=== PATIENT | female | born 1970 | race Caucasian/White ===

== ENCOUNTER 2019-12-28 09:13 | Emergency (ER) | payer BC ==
[~2019-12-28] VITALS: Ht 154.9 cm; Wt 78.9 kg
--- NOTE | 2019-12-28 09:13 | NUR ---
Patient to bed 7 and gown. Side rails up.
[2019-12-28 09:31] VITALS: BP_SYST 110
[2019-12-28] MEDS ORDERED: SOM350 PO (09:31)
[2019-12-28] MEDS ORDERED: TYLENOL #3 PO (09:31)
--- NOTE | 2019-12-28 09:32 | NUR ---
Dr. Valentino at bedside for examination.
--- NOTE | 2019-12-28 09:35 | NUR ---
Patient came to ER presenting of diarrhea since 10 PM last night. Patient does not complain of vomitting but has been "feeling nauseous." Patient reported to have undergone hysterectomy 12/22/2019 and has been taking medication for pain. Patient reports soreness in right abdominal region but does not report pain at this time. Patient ambulatory with family at bedside.
--- NOTE | 2019-12-28 09:38 | NUR ---
PATIENT PRESENTS TO THE ER WITH HX OF DIARRHEA FOR 11 HOURS WITH ABDOMINAL CRAMPING, NAUSEA, EPIGASTRIC BURNING, AND LOWER BACK PAIN; NO TRAUMA, NO OTHER REMARKABLE S/S; PATIENT STATES HYSTERECTOMY PROCEDURE FIVE DAYS AGO; PATIENT TO ER #[id number] AT [id number]
[2019-12-28 10:16] LABS: BASOPHILS % (AUTO) 0.2 % (0.0-2.0); EOSINOPHILS # (AUTO) 0.2 K/uL (0.0-0.4); EOSINOPHILS % (AUTO) 2.5 % (0.0-4.0); HEMATOCRIT 42.3 % (36-48); HEMOGLOBIN 14.3 g/dL (12.0-16.0); LYMPHOCYTES # (AUTO) 0.8 K/uL (1.0-5.5); LYMPHOCYTES % (AUTO) 8.4 % (20.5-51.5); MEAN CORPUSCULAR HEMOGLOBIN 31 pg (27-31); MEAN CORPUSCULAR HGB CONC 34 % (32-36); MEAN CORPUSCULAR VOLUME 91 fL (79.0-98.0); MONOCYTES # (AUTO) 0.5 K/uL (0.0-1.0); MONOCYTES % (AUTO) 5.4 % (1.7-9.3); NEUTROPHILS # (AUTO) 7.6 K/uL (1.8-7.7); NEUTROPHILS % (AUTO) 83.5 % (40.0-70.0); PLATELET COUNT (AUTO) 238 K/uL (130-430); RED BLOOD CELL COUNT(AUTO) 4.67 MIL/uL (4.2-6.2); RED CELL DISTRIBUTION WIDTH 13.4 % (9.0-15.0); WHITE BLOOD COUNT (AUTO) 9.1 K/uL (4.8-10.8)
[2019-12-28 10:26] LABS: CALCIUM 9.2 mg/dL (8.4-11.0); CREATININE 0.64 mg/dL (0.55-1.30); POTASSIUM 3.5 mmol/L (3.5-5.1)
[2019-12-28 10:29] LABS: PROTHROMBIN TIME 9.9 SECS (9.5-12.5)
[2019-12-28 10:30] LABS: ALBUMIN 3.7 g/dL (3.4-4.8); TOTAL BILIRUBIN 0.6 mg/dL (0.0-1.0)
--- NOTE | 2019-12-28 11:00 | NUR ---
Patient in no signs of distress at this time. No complaints of pain.
[2019-12-28 11:52] LABS: BILIRUBIN,URINE NEGATIVE (NEGATIVE); CLARITY/URINE SL CLOUDY (CLEAR); COLOR,URINE YELLOW (YELLOW); GLUCOSE,URINE NEGATIVE (NEGATIVE); KETONES,URINE NEGATIVE (NEGATIVE); LEUKOCYTE ESTERASE ,URINE NEGATIVE (NEGATIVE); NITRITE, URINE NEGATIVE (NEGATIVE); PH,URINE 6.5 (5.0-8.0); PROTEIN URINE NEGATIVE (NEGATIVE); UROBILINOGEN,URINE 0.2 (0.2-1.0)
[2019-12-28 11:55] LABS: BLOOD, URINE TRACE (NEGATIVE)
[2019-12-28 12:28] LABS: BACTERIA,URINE FEW /HPF (None Seen); WBC,URINE 0-3 /HPF (0-3)
[2019-12-28 12:42] VITALS: BP_SYST 110
--- NOTE | 2019-12-28 12:43 | NUR ---
Patient given written and verbal discharge instructions and verbalizes understanding. ER MD discussed with patient the results and treatment provided. Patient in stable condition. ID arm band removed. Rx of Augmentin and Motrin given. Patient educated on pain management and to follow up with PMD. Pain Scale 0/10. Opportunity for questions provided and answered. Medication side effect fact sheet provided.
== END 2019-12-28 12:41 | disposition home or self-care (01) ==
LOC: SED 09:13
DX: K57.92 Diverticulitis of intestine, part unspecified, without perforation or abscess without bleeding (principal)
CPT/HCPCS: 36415; 80053; 81000-TC; 82150-TC; 83605; 83615-TC; 83690-TC; 84703; 85025; 85610-TC; 85730-TC; 99284